=== PATIENT | female | born 1975 | race Caucasian/White ===

== ENCOUNTER → 2016-12-15 | Day surgery (SDC) | payer OTHER ==
[~2016-12-15] VITALS: Ht 167.6 cm; Wt 68.0 kg
[~2016-12-15] MED LIST: CLARITIN10 MG PO; ELAVIL25 MG PO; FLONASE 50 MCG/16 GM NOSE; LAMICTAL150 MG PO; PROTONIX40 MG PO; SINGULAIR10 MG PO; ZANTAC (NON-FO150 MG PO; ZYRTEC10 MG PO
--- NOTE | ~2016-12-15 | HP ---
PATIENT'S NAME: FLAQUITA DOUGLAS [facility] AGE: 41 Y [address] ROOM: [place] [id number] LOCATION: GEND ADMIT DATE: 12/15/2016 History & Physical DISCHARGE DATE: FAMILY PHYSICIAN: Donna Wakefield MD ATTENDING PHYSICIAN: SERA MINER DATE OF SERVICE: 12/15/2016 HISTORY OF PRESENT ILLNESS: Flaquita Douglas is a very pleasant, 41-year-old female with history of chronic "globus sensation" with the previous negative extensive workup including negative upper endoscopy. She states after her last endoscopy she felt better for 3 days and her globus sensation had disappeared. Recently, she was placed on amitriptyline without any benefit and wonders if esophageal dilatation would be helpful. PAST MEDICAL HISTORY: Otherwise, unremarkable. PAST SURGICAL HISTORY: Upper endoscopy. MEDICATIONS: As noted in MAR. PHYSICAL EXAMINATION: GENERAL: She is awake, alert, and appropriate. VITAL SIGNS: Weight 150 pounds. Blood pressure 118/62, pulse of 68 per minute. HEENT: Normocephalic and atraumatic. Pupils are round and reactive. NECK: Supple. No palpable nodes. No thyromegaly. CHEST: Clear to auscultation. HEART: S1 and S2 normal. ABDOMEN: Soft and benign without palpable masses or tenderness. NEUROLOGIC: Awake, alert, and appropriate without any focal deficits. ASSESSMENT AND PLAN: A 41-year-old female with history of globus sensation and negative work up as well as negative previous upper endoscopy. Consideration can be given to performing EGD with esophageal dilatation in view of her previous complete response post endoscopy. She has been explained the procedure, as well as the risks and complications as well as the fact that this may or may not help with her symptoms. PATIENT'S NAME: FLAQUITA DOUGLAS [facility] AGE: 41 Y [address] ROOM: [place] [id number] LOCATION: GEND ADMIT DATE: 12/15/2016 History & Physical DISCHARGE DATE: FAMILY PHYSICIAN: Donna Wakefield MD ATTENDING PHYSICIAN: SERA MINER ATAM MD JULIET MINER/zenon /[id number] D: [id number] T: [id number] HISTORY & PHYSICAL
== END | disposition disaster alternative care site (69) ==
LOC: GPOC 12-11 15:00 → GEND 08:26 → GPOC 08:30
PROC: 0D758ZZ Dilation of Esophagus, Via Natural or Artificial Opening Endoscopic (ICD-10-PCS; principal; 2016-12-15)
DX: R13.10 Dysphagia, unspecified (principal); K22.8 Other specified diseases of esophagus
CPT/HCPCS: J2001; J7030